=== PATIENT | female | born 1985 | race Caucasian/White ===

== ENCOUNTER 2023-01-03 13:54 | Day surgery (SDC) | payer OTHER, SELFPAY ==
[2023-01-03 14:18] VITALS: BMI 29.6
[2023-01-03] MEDS ORDERED: hydrALAZINE 20 MG/ML VIAL SLOW IVP PRN (14:44)
[2023-01-03 15:16] LABS: #Basophils 0.1 10x3/uL (0.0-0.2); #Eosinphils 0.2 10x3/uL (0.0-0.5); #Monocytes 0.9 10x3/uL (0.0-1.1); #Neutrophils 9.5 10x3/uL (1.5-8.4); %Basophils 0.5 % (0.0-2.0); %Eosinophils 1.2 % (0.0-6.0); %Lymphocytes 19.9 % (18.0-47.0); %Monocytes 6.8 % (0.0-10.0); %Neutrophils 69.6 % (40.0-75.0); Hematocrit 31.1 % (34.9-44.5); Hemoglobin 10.7 g/dL (12.0-15.5); Mean Corpuscular HGB CONC 34.4 g/dL (32.0-36.0); Mean Corpuscular Hemoglobin 29.3 pg (27.0-33.0); Mean Corpuscular Volume 85.2 fl (81.6-98.3); Mean Platelet Volume 9.6 fl (7.4-10.4); Platelet Count 258 10x3/uL (150-450); RBC Distribution Width 13.2 % (11.5-14.5); Red Blood Cell (RBC) Count 3.65 10x6/uL (3.90-5.03); White Blood Cell (WBC) Count 13.6 10x3/uL (3.5-10.5)
[2023-01-03 15:29] LABS: ALT (SGPT) 10 U/L (8-55); AST (SGOT) 11 U/L (5-34); Albumin 3.3 g/dL (3.5-5.0); Alkaline Phosphatase 145 U/L (40-110); Anion Gap 11 mmol/L (10-20); BUN (Urea Nitrogen) 5 mg/dL (7.0-18.7); Bilirubin, Total 0.3 mg/dL (0.2-1.2); Calc. Creatinine Clearance 157 mL/min (70-130); Calcium 8.9 mg/dL (7.8-10.44); Carbon Dioxide 25 mmol/L (22-29); Chloride 106 mmol/L (98-107); Estimated GFR 116; Globulin 2.7 g/dL (2.4-3.5); Glucose 90 mg/dL (70-105); Potassium 2.7 mmol/L (3.5-5.1); Sodium 139 mmol/L (136-145)
== END 2023-01-03 17:01 | disposition home health service (06) ==
LOC: CSHLD/OP 13:54
PROVIDERS: ATTEND Student in an Organized Health Care Education/Training Program
DX: O12.13 Gestational proteinuria, third trimester (principal); O16.3 Unspecified maternal hypertension, third trimester; O99.333 Smoking (tobacco) complicating pregnancy, third trimester; F17.200 Nicotine dependence, unspecified, uncomplicated; Z3A.37 37 weeks gestation of pregnancy; Z88.0 Allergy status to penicillin
CPT/HCPCS: 80053; 82570; 84156; 85025; 99283

== ENCOUNTER 2023-01-04 14:44 | Inpatient (IN) | payer OTHER, SELFPAY ==
[2023-01-04 15:25] VITALS: BMI 29.3
[2023-01-04] MEDS ORDERED: Carboprost 250 MCG/ML AMP IM PRN (16:14)
[2023-01-04] MEDS ORDERED: Diphenoxylate HCl/Atropine Tablet PO PRN (16:14)
[2023-01-04] MEDS ORDERED: hydrALAZINE 20 MG/ML VIAL SLOW IVP PRN (16:14)
[2023-01-04] MEDS ORDERED: Ondansetron PF 4 MG/2 ML Vial IVP PRN ×2 (16:14→18:31)
[2023-01-04] MEDS ORDERED: Acetaminophen 500 MG TAB PO PRN (16:14)
[2023-01-04] MEDS ORDERED: fentaNYL 50 mcg/mL 1 mL Vial SLOW IVP PRN (16:14)
[2023-01-04] MEDS ORDERED: Misoprostol 200 MCG TAB PR PRN (16:14)
[2023-01-04] MEDS ORDERED: Methylergonovine 0.2 MG/ML VIAL IM PRN (16:14)
[2023-01-04] MEDS ORDERED: Lidocaine 1% (PF) 30 ML VIAL SC PRN (16:14)
[2023-01-04] MEDS ORDERED: Promethazine HCl 25 MG/ML VIAL IM PRN ×2 (16:14→18:31)
[2023-01-04] MEDS ORDERED: Ibuprofen 800 MG TAB PO PRN (16:14)
[2023-01-04] MEDS ORDERED: HYDROcodone/Acetaminophen 5/325 mg Tablet PO PRN (16:14)
[2023-01-04] MEDS ORDERED: NS w/ Oxytocin 30 units 500 ML IV SCH ×2 (16:15)
[2023-01-04] MEDS ORDERED: Lactated Ringer's 1,000 ML IV SCH (16:15)
[2023-01-04 16:36] LABS: Hematocrit 32.4 % (34.9-44.5); Hemoglobin 11.3 g/dL (12.0-15.5); Mean Corpuscular HGB CONC 34.9 g/dL (32.0-36.0); Mean Corpuscular Hemoglobin 29.7 pg (27.0-33.0); Mean Corpuscular Volume 85.3 fl (81.6-98.3); Mean Platelet Volume 9.8 fl (7.4-10.4); Platelet Count 273 10x3/uL (150-450); RBC Distribution Width 13.2 % (11.5-14.5); White Blood Cell (WBC) Count 16.6 10x3/uL (3.5-10.5)
[2023-01-04 17:08] LABS: HBSAg Index 0.15 S/CO (0-0.99); Hep B Surf Ag - L&D Non-Reactive S/CO (NonReactive)
[2023-01-04 17:10] LABS: Syphilis Antibody Nonreactive (Nonreactive); Syphilis Antibody Index 0.06 S/CO (<1.00 Non-Reactive)
[2023-01-04] MEDS ORDERED: fentaNYL/Ropivacaine Epidural 100 ML ONE (17:22)
[2023-01-04] MEDS ORDERED: Bupivacaine 0.25% HCL 30 ML VIAL ONE ×2 (17:23→20:33)
[2023-01-04] MEDS ORDERED: Acetaminophen 325 MG TAB PO PRN (18:31)
[2023-01-04] MEDS ORDERED: Naloxone HCl 0.4 mg/ml Vial IVP PRN ×2 (18:31)
[2023-01-04] MEDS ORDERED: diphenhydrAMINE 50 MG/ML VIAL IVP PRN (18:31)
[2023-01-04] MEDS ORDERED: Lactated Ringer's 500 ML IV PRN (18:31)
[2023-01-04] MEDS ORDERED: ePHEDrine Sulfate 50 MG/10 ML VIAL SLOW IVP PRN (18:31)
[2023-01-04] MEDS ORDERED: Moisturizing Cream (Eucerin) 113 GM JAR TOP PRN (18:31)
[2023-01-04] MEDS ORDERED: Communication Order-Pharmacy FS SCH (18:45)
[2023-01-04] MEDS ORDERED: fentaNYL 2 mcg/Ropivacaine 0.2% Epidural 100 ML CADD EPIDURAL SCH (18:45)
[2023-01-04] MEDS ORDERED: Bupivacaine PF 0.5% 30 ML VIAL ONE (18:47)
[2023-01-04] MEDS ORDERED: Dexmedetomidine 200 MCG/2 ML VIAL ONE (18:47)
[2023-01-05] MEDS ORDERED: Milk Of Magnesia 30 ML UDCUP PO PRN (00:41)
[2023-01-05] MEDS ORDERED: Boostrix 0.5 ML (Tdap) VIAL (>/=7 yrs of age) IM ONE (00:41)
[2023-01-05] MEDS ORDERED: Ondansetron PF 4 MG/2 ML Vial IVP PRN (00:41)
[2023-01-05] MEDS ORDERED: diphenhydrAMINE 25 MG CAP PO PRN (00:41)
[2023-01-05] MEDS ORDERED: hydrALAZINE 20 MG/ML VIAL SLOW IVP PRN (00:41)
[2023-01-05] MEDS ORDERED: Lanolin Ointment 7 GM TUBE TOP PRN (00:41)
[2023-01-05] MEDS ORDERED: Benzocaine-Menthol 82.5 ML CAN TOP PRN (00:41)
[2023-01-05] MEDS ORDERED: Promethazine HCl 25 MG/ML VIAL IM PRN (00:41)
[2023-01-05] MEDS ORDERED: Preparation H Ointment 28 GM TUBE PR PRN (00:41)
[2023-01-05] MEDS ORDERED: Bisacodyl 10 MG SUPP PR PRN (00:41)
[2023-01-05] MEDS: HYDROcodone/Acetaminophen 5/325 mg Tablet PO PRN ×2 (03:42→19:32)
[2023-01-05] MEDS: Ibuprofen 800 MG TAB PO SCH ×3 (05:05→21:40)
[2023-01-05] MEDS: Ferrous Sulfate 325 MG TAB PO SCH ×2 (10:47→17:50)
[2023-01-05] MEDS: Docusate 100 MG CAP PO SCH ×2 (10:47→21:40)
[2023-01-05] MEDS: Prenatal Vitamin 1 TAB PO SCH (10:47)
[2023-01-06] MEDS: Ibuprofen 800 MG TAB PO SCH (05:19)
[2023-01-06] MEDS: HYDROcodone/Acetaminophen 5/325 mg Tablet PO PRN (05:53)
[2023-01-06] MEDS: Docusate 100 MG CAP PO SCH (10:02)
[2023-01-06] MEDS: Prenatal Vitamin 1 TAB PO SCH (10:02)
[2023-01-06 12:20] VITALS: BP 147/82; TEMP 98.9
== END 2023-01-06 13:35 | disposition home or self-care (01) | DRG 807 ==
LOC: CSHLD 14:44 → CSHPP 01-05 00:30
PROVIDERS: ADMIT Student in an Organized Health Care Education/Training Program; ATTEND Student in an Organized Health Care Education/Training Program
PROC: 10E0XZZ Delivery of Products of Conception, External Approach (ICD-10-PCS; principal; 2023-01-04)
PROC: 3E0334Z Introduction of Serum, Toxoid and Vaccine into Peripheral Vein, Percutaneous Approach (ICD-10-PCS; 2023-01-04)
DX: O26.893 Other specified pregnancy related conditions, third trimester (principal); Z37.0 Single live birth; Z67.21 Type B blood, Rh negative; Z88.0 Allergy status to penicillin; Z3A.37 37 weeks gestation of pregnancy; R03.0 Elevated blood-pressure reading, without diagnosis of hypertension; O99.893 Other specified diseases and conditions complicating puerperium
CPT/HCPCS: 36415; 51702; 85027; 85461; 86780; 86850; 86870; 86900; 86901; 86922; 87340; 90384; 96372; J2590; S0020

== ENCOUNTER 2023-01-07 17:56 | Observation (INO) | payer OTHER ==
[2023-01-07] MEDS ORDERED: hydrALAZINE 20 MG/ML VIAL ONE (18:41)
[2023-01-07] MEDS ORDERED: Magnesium Sulfate 20 gm/500 ml 20 GM/500 ML BAG ONE ×2 (18:42→19:32)
[2023-01-07] MEDS: Magnesium Sulfate 20 gm/500 ml 20 GM/500 ML BAG IVPB SCH (19:02)
[2023-01-07] MEDS ORDERED: Lorazepam 2 MG/ML VIAL SLOW IVP PRN (19:03)
[2023-01-07] MEDS ORDERED: Calcium Gluc 4.6 MEQ/10 ML (100 MG/ML) SLOW IVP PRN (19:03)
[2023-01-07] MEDS ORDERED: hydrALAZINE 20 MG/ML VIAL SLOW IVP PRN (19:04)
[2023-01-07] MEDS ORDERED: Ondansetron PF 4 MG/2 ML Vial IVP PRN (19:04)
[2023-01-07] MEDS ORDERED: Promethazine HCl 25 MG/ML VIAL IM PRN (19:04)
[2023-01-07] MEDS ORDERED: Cyclobenzaprine 10 MG TAB PO SCH (19:15)
[2023-01-07] MEDS ORDERED: Acetaminophen 500 MG TAB PO SCH (19:15)
[2023-01-07] MEDS: hydrALAZINE 20 MG/ML VIAL SLOW IVP SCH (19:21)
[2023-01-07] MEDS ORDERED: Magnesium Sulfate 20 gm/500 ml 4 GM/100 ML BAG IVPB SCH (19:30)
[2023-01-07 19:36] LABS: #Basophils 0.1 10x3/uL (0.0-0.2); #Eosinphils 0.3 10x3/uL (0.0-0.5); #Monocytes 0.7 10x3/uL (0.0-1.1); #Neutrophils 7.9 10x3/uL (1.5-8.4); %Basophils 0.5 % (0.0-2.0); %Eosinophils 2.3 % (0.0-6.0); %Lymphocytes 28.2 % (18.0-47.0); %Monocytes 5.4 % (0.0-10.0); %Neutrophils 61.7 % (40.0-75.0); Hematocrit 31.6 % (34.9-44.5); Hemoglobin 10.9 g/dL (12.0-15.5); Mean Corpuscular HGB CONC 34.5 g/dL (32.0-36.0); Mean Corpuscular Hemoglobin 29.5 pg (27.0-33.0); Mean Corpuscular Volume 85.4 fl (81.6-98.3); Mean Platelet Volume 9.7 fl (7.4-10.4); Platelet Count 304 10x3/uL (150-450); RBC Distribution Width 13.1 % (11.5-14.5); White Blood Cell (WBC) Count 12.8 10x3/uL (3.5-10.5)
[2023-01-07 19:47] LABS: ALT (SGPT) 15 U/L (8-55); AST (SGOT) 16 U/L (5-34); Albumin 3.5 g/dL (3.5-5.0); Alkaline Phosphatase 118 U/L (40-110); Anion Gap 14 mmol/L (10-20); BUN (Urea Nitrogen) 10 mg/dL (7.0-18.7); Bilirubin, Total 0.3 mg/dL (0.2-1.2); Calc. Creatinine Clearance 0 mL/min (70-130); Calcium 9.2 mg/dL (7.8-10.44); Carbon Dioxide 26 mmol/L (22-29); Chloride 105 mmol/L (98-107); Estimated GFR 94; Globulin 2.7 g/dL (2.4-3.5); Glucose 96 mg/dL (70-105); Potassium 3.4 mmol/L (3.5-5.1); Protein, Total 6.2 g/dL (6.0-8.3); Sodium 142 mmol/L (136-145)
[2023-01-07 19:58] VITALS: BMI 27.3
[2023-01-07] MEDS ORDERED: NIFEdipine XL 30 MG TAB PO SCH (21:00)
[2023-01-07 21:19] LABS: Protein, Urine Random Quant Less than 10 mg/dL (1-14)
[2023-01-08] MEDS: Magnesium Sulfate 20 gm/500 ml 20 GM/500 ML BAG IVPB SCH ×2 (03:49→13:32)
[2023-01-08] MEDS ORDERED: Acetaminophen 500 MG TAB PO SCH (04:00)
[2023-01-08] MEDS ORDERED: HYDROcodone/Acetaminophen 5/325 mg Tablet PO PRN (08:42)
[2023-01-08] MEDS: HYDROcodone/Acetaminophen 5/325 mg Tablet PO PRN ×2 (08:52→23:34)
[2023-01-08] MEDS: NIFEdipine XL 30 MG TAB PO SCH (08:52)
[2023-01-08] MEDS: Ibuprofen 800 MG TAB PO PRN ×2 (08:53→18:47)
[2023-01-08] MEDS: hydrALAZINE 20 MG/ML VIAL SLOW IVP SCH (19:28)
[2023-01-09] MEDS: Ibuprofen 800 MG TAB PO PRN (04:45)
[2023-01-09 07:44] VITALS: BP 127/86; TEMP 98.1
[2023-01-09] MEDS: NIFEdipine XL 30 MG TAB PO SCH (08:33)
== END 2023-01-09 09:00 | disposition home or self-care (01) ==
LOC: CSHERS 17:56 → CSHSDC/OP 18:12 → CSHLD 19:04 → CSHPP 01-08 20:30
PROVIDERS: ADMIT Student in an Organized Health Care Education/Training Program; ATTEND Student in an Organized Health Care Education/Training Program
DX: O16.5 Unspecified maternal hypertension, complicating the puerperium (principal); R07.9 Chest pain, unspecified; Z88.0 Allergy status to penicillin; Z79.899 Other long term (current) drug therapy
CPT/HCPCS: 71045; 80053; 82570; 83880; 84156; 84484; 85025; 93005; 93010; 96374; 96375; 96376; G0378; J0360; J3475

== ENCOUNTER 2023-05-21 15:36 | Outpatient (CLI) | payer OTHER | END 2023-05-21 15:37 | disposition home or self-care (01) | LOC: CSHLAB 15:36 | PROVIDERS: ATTEND Student in an Organized Health Care Education/Training Program | DX: Z01.812 Encounter for preprocedural laboratory examination (principal); N87.1 Moderate cervical dysplasia | CPT/HCPCS: 84703; 85027; 86850; 86900; 86901 ==

== ENCOUNTER 2023-05-23 05:54 | Day surgery (SDC) | payer OTHER ==
[2023-05-21 15:54] VITALS: BMI 23.1
[2023-05-21 16:16] LABS: Hematocrit 45.7 % (34.9-44.5); Hemoglobin 15.9 g/dL (12.0-15.5); Mean Corpuscular HGB CONC 34.8 g/dL (32.0-36.0); Mean Corpuscular Hemoglobin 29.8 pg (27.0-33.0); Mean Corpuscular Volume 85.7 fl (81.6-98.3); Mean Platelet Volume 9.5 fl (7.4-10.4); Platelet Count 259 10x3/uL (150-450); RBC Distribution Width 12.6 % (11.5-14.5); Red Blood Cell (RBC) Count 5.33 10x6/uL (3.90-5.03); White Blood Cell (WBC) Count 8.1 10x3/uL (3.5-10.5)
[2023-05-21 16:43] LABS: BHCG - Serum Negative (NEGATIVE); Pregs Control Background? CLEAR/WHITE (CLR/WHITE); Pregs Control Bar Appear? YES (CONTROL BAR)
[2023-05-23] MEDS ORDERED: CeleCOXIB 100 MG CAP ONE (06:22)
[2023-05-23] MEDS ORDERED: Famotidine/PF 20 mg/2ml Vial ONE (06:22)
[2023-05-23] MEDS ORDERED: Gabapentin 300 MG CAP ONE (06:22)
[2023-05-23] MEDS ORDERED: LevoFLOXacin D5W 500 mg (100 mL) BAG ONE (06:22)
[2023-05-23] MEDS ORDERED: EPINEPHrine 1 MG/ML VIAL ONE (06:28)
[2023-05-23] MEDS ORDERED: Bupivacaine PF 0.5% 30 ML VIAL ONE (06:28)
[2023-05-23] MEDS ORDERED: Vasopressin 20 UNITS/ML VIAL ONE (06:28)
[2023-05-23] MEDS ORDERED: Dexamethasone 4 mg/ml Vial ONE (06:47)
[2023-05-23] MEDS ORDERED: Rocuronium Bromide 10 MG/ML (10ML VIAL) ONE (06:47)
[2023-05-23] MEDS ORDERED: fentaNYL 50 mcg/mL 1 mL Vial ONE (06:47)
[2023-05-23] MEDS ORDERED: Lidocaine 1% PF 5 ML VIAL ONE (06:47)
[2023-05-23] MEDS ORDERED: Ondansetron PF 4 MG/2 ML Vial ONE ×2 (06:47→11:01)
[2023-05-23] MEDS ORDERED: PROPOFOL 20 ML ONE (06:47)
[2023-05-23] MEDS ORDERED: Clindamycin/D5W 900 mg/50 ml Premix Bag ONE (07:10)
[2023-05-23] MEDS ORDERED: HYDROmorphone 0.5 MG/0.5 ML SYRINGE ONE ×2 (07:10→09:11)
[2023-05-23] MEDS ORDERED: Midazolam HCl 2 mg/2 ml Vial ONE (07:17)
[2023-05-23] MEDS ORDERED: Ketorolac Tromethamine 30 MG (1 mL) VIAL ONE (08:26)
[2023-05-23] MEDS ORDERED: Glycopyrrolate 0.2 MG/ML 5 ML SYRINGE ONE (08:26)
[2023-05-23] MEDS ORDERED: HYDROcodone/Acetaminophen 5/325 mg Tablet ONE (10:00)
[2023-05-23] MEDS ORDERED: Scopolamine 1 mg/72 hour Patch ONE (11:48)
== END 2023-05-23 14:00 | disposition home or self-care (01) ==
LOC: CSHSDC 05:54
PROVIDERS: ATTEND Student in an Organized Health Care Education/Training Program
PROC: 0UT9FZZ Resection of Uterus, Via Natural or Artificial Opening With Percutaneous Endoscopic Assistance (ICD-10-PCS; principal; 2023-05-23)
DX: D06.9 Carcinoma in situ of cervix, unspecified (principal); G89.18 Other acute postprocedural pain; F17.210 Nicotine dependence, cigarettes, uncomplicated; Z88.0 Allergy status to penicillin; Z88.1 Allergy status to other antibiotic agents; Z79.899 Other long term (current) drug therapy; Z98.890 Other specified postprocedural states
CPT/HCPCS: 84703; 85027; 86850; 86900; 86901; 88307; J0171; J0665; J1100; J1170; J1885; J1956; J2250; J2405; J2704; J3010; J3490; S0028